=== PATIENT | female | born 1990 | race Caucasian/White ===

== ENCOUNTER → 2019-09-11 12:56 | Outpatient (BNVA) | payer OTHER, SELFPAY | PROVIDERS: Family Provider Nurse Practitioner Family; PCP Internal Medicine Rheumatology; Referring Provider Nurse Practitioner; Visit Provider Internal Medicine Rheumatology | DX: I73.00 Raynaud's syndrome without gangrene (principal); F41.9 Anxiety disorder, unspecified | CPT/HCPCS: 99203 ==

== ENCOUNTER 2020-04-19 12:41 | Outpatient (CLI) | payer SELFPAY ==
--- NOTE | 2020-04-19 12:57 | CT_ITS ---
WS: [id number] CT NECK WITH CONTRAST HISTORY: LOCALIZED SWELLING, MASS AND LUMP, TECHNIQUE: Contiguous 5 mm axial images are performed through the neck with intravenous contrast. Sag ittal and coronal reformats are also submitted. All CT scans at [facility] use at least o ne of these dose optimization techniques: automated exposure control; mA and/or kV adjustment per pat ient size (includes targeted exams where dose is matched to clinical indication); or iterative recons truction. CONTRAST: CONTRAST: Omnipaque 300; 95 mL IV. DLP: 2186.75 mGycm COMPARISON: None available. Nasopharynx, oropharynx, hypopharynx and larynx are unremarkable. No soft tissue masses or abnormal e nhancement. Torus tubarius and fossa of Rosenmuller and parapharyngeal fat are normal. There are small benign cervical chain lymph nodes. The largest at level IIa on the RIGHT is 6.2 mm. Submandibular and probably glands are symmetric bilaterally. No evidence for enlargement or acute inf lammatory process. There are no calcifications along the course of the ducts are dilated ducts. Promise l thyroid gland. No osseous abnormalities. Visualized portions of the skull base demonstrate no abnormalities. Orbits and globes are within norm al limits. No soft tissue masses. Visualized paranasal sinuses and mastoid air cells are normal. Lung apices are clear. CT/CT neck w con* [id number] IMPRESSION: 1. No neck mass or adenopathy. 2. No evidence for parotitis.
[2020-04-19] MEDS: iohexol 300 mg/mL 100 mL Btl IV (13:39)
== END 2020-04-19 12:42 | disposition home or self-care (01) ==
LOC: RADWPI 12:45
PROVIDERS: Family Provider Nurse Practitioner Family; PCP Internal Medicine Rheumatology; Visit Provider Specialist
DX: R22.1 Localized swelling, mass and lump, neck (principal)
CPT/HCPCS: 70491; Q9967

== ENCOUNTER → 2021-01-06 13:20 | Outpatient (BNVA) | payer OTHER, SELFPAY | PROVIDERS: Family Provider Nurse Practitioner Family; PCP Internal Medicine Rheumatology; Visit Provider Nurse Practitioner Family | DX: E66.9 Obesity, unspecified (principal); E55.9 Vitamin D deficiency, unspecified; R53.83 Other fatigue; Z79.899 Other long term (current) drug therapy; Z13.6 Encounter for screening for cardiovascular disorders | CPT/HCPCS: 80053; 80061; 81003; 82306; 83036; 84443; 85025 ==

== ENCOUNTER → 2021-03-30 15:50 | Outpatient (BNVA) | payer OTHER, SELFPAY | PROVIDERS: Family Provider Nurse Practitioner Family; PCP Internal Medicine Rheumatology; Visit Provider Nurse Practitioner Family | DX: R30.0 Dysuria (principal); H65.93 Unspecified nonsuppurative otitis media, bilateral; B37.3 Candidiasis of vulva and vagina; L98.9 Disorder of the skin and subcutaneous tissue, unspecified; H60.93 Unspecified otitis externa, bilateral; N39.0 Urinary tract infection, site not specified | CPT/HCPCS: 81003 ==

== ENCOUNTER → 2022-04-24 16:47 | Outpatient (BNVA) | payer OTHER, SELFPAY | PROVIDERS: Family Provider Nurse Practitioner Family; PCP Internal Medicine Rheumatology; Visit Provider Nurse Practitioner | DX: U07.1 COVID-19 (principal) | CPT/HCPCS: 87426 ==

== ENCOUNTER 2022-10-23 18:07 | Emergency (ER) | payer MEDICAID, SELFPAY ==
[2022-10-23 18:18] VITALS: BP 123/85; PULSE 100; RESP 16; TEMP 36.7; O2SAT 99; BMI 30.9
--- NOTE | 2022-10-23 18:23 | USR_ITS ---
PROCEDURE INFORMATION: Exam: US Duplex Left Lower Extremity Veins, Limited Exam date and time: 10/23/2022 7:10 PM Age: 32 years old Clinical indication: Leg, lower; Patient HX: Left posterior calf pain which radiates to the left hip x 2 months. No history of dvt per patient. ; Additional info: Leg pain TECHNIQUE: Imaging protocol: Real-time duplex ultrasound of the left extremity with 2-D fontenot scale, color Doppler flow and spectral waveform analysis including responses to compression and other maneuvers (when performed) with image documentation. Limited exam focused on the left lower extremity veins. COMPARISON: US soft tissue/extremity [id number] 02/03/2019 8:05 AM FINDINGS: Left deep veins: Unremarkable. The common femoral, femoral, proximal profunda femoral, popliteal, posterior tibial and peroneal veins are patent without thrombus. Normal compressibility, augmentation response and Doppler waveforms. Left superficial veins: Unremarkable. Saphenofemoral junction is patent without thrombus. Soft tissues: Unremarkable. US/CV venous duplex [facility] [id number] IMPRESSION: No sonographic evidence of deep vein thrombosis.
--- NOTE | 2022-10-23 19:01 | ED_ITS ---
HPI - Extremity Problem General: Chief complaint: Extremity Problem,Nontraumatic Stated complaint: Left leg swelling and pain Time Seen by Provider: 10/23/22 18:23 Source: patient Mode of arrival: ambulatory Limitations: no limitations History of Present Illness: 32-year-old female states she been having some swelling and tenderness to her left lower leg over the last 2 to 3 weeks. States she is concerned she may have a blood clot she denies any fever denies any warmth denies any injuries she denies any worsening improving factors. Denies any chest pain or shortness of breath. Associated symptoms: Deny chest pain, fever(s) or rash Review of Systems Const: Denies: fever(s), chills, body aches or change in appetite Eyes: Denies: blurry vision or eye discomfort ENMT: Denies: throat pain or dental pain Card: Denies: chest pain Resp: Denies: dyspnea GI: Denies: abdominal pain, nausea, vomiting or diarrhea : Denies: dysuria Musc: Reports: extremity pain and extremity swelling Skin/Breast: Denies: rash Neuro: Denies: headache(s) Psych: Denies: depression Lloyd/Lymph: Denies: easy bruising All/Imm: Denies: urticaria PFSH ED PFSH: Medical History Anxiety Bilateral otitis externa Encounter for health education Isolated primary Raynaud's phenomenon Raynauds disease Skin lesion Vaginal yeast infection Vitamin D deficiency Social History Smoking and tobacco status: former smoker Alcohol intake: current Alcohol intake frequency: holidays/special occasions only Physical Exam Const: COMMON NORMALS: no acute distress and patient oriented x3 HENMT: COMMON NORMALS: normocephalic and atraumatic HEAD & SCALP: normocephalic and atraumatic Eye: COMMON NORMALS: conjunctivae normal CONJUNCTIVA: Yes conjunctivae normal Neck/C-Spine: COMMON NORMALS: supple Chest: COMMONS NORMALS: normal inspection of the chest Resp: COMMON NORMALS: normal respiratory effort Cardio: COMMON NORMALS: regular rate RATE: regular rate GI: INSPECTION: Yes normal to inspection Extremity: NARRATIVE EXTREMITY EXAM: Swelling to left lower leg slight tenderness very minimal swelling no redness distal pulses intact Neuro: COMMON NORMALS: patient oriented x3 Psych: COMMON NORMALS: mental status grossly normal Skin: COMMON NORMALS: no rashes or lesions noted GENERAL SKIN EXAM: no rashes or lesions noted Course Vital Signs: Vital signs: Vital Signs Temperature 98.1 F 10/23/22 18:18 Pulse Rate 100 10/23/22 18:18 Respiratory Rate 16 10/23/22 18:18 Blood Pressure 123/85 10/23/22 18:18 Pulse Oximetry 99 10/23/22 18:18 Oxygen Delivery Me thod 10/23/22 18:18 MDM - Extremity (Nontraumatic) Medical Decision Making Patient presents with left leg pain and some very minimal swelling exam here is benign no signs of cellulitis ultrasound showed no sites of DVT she is well- appearing here she is stable for discharge she is to follow-up with PCP and return if worsening Discharge Plan Discharge Patient Disposition: Home Clinical Impression: Left leg pain Condition: Stable Prescriptions: No Action cholecalciferol (vitamin D3) 5,000 unit capsule 5,000 unit PO DAILY Discharge Orders: Discharge ED (Routine); Ordered 10/23/22 Ordered By: Violeta Juarez Discharge Diet: Advance as tolerated Discharge Activity: Resume usual activity Patient Instructions: Leg Pain (ED) Coding Level of Care Code ED Urgent Care Technician for Surya Villa
[2022-10-23 20:10] VITALS: BP 140/77; PULSE 84; RESP 18; O2SAT 98
--- NOTE | 2022-11-01 15:08 | DCPLANNER ---
Addendum entered by Belinda Springer 11/01/22 15:09: TCM called patient due to no primary care physician listed in patients chart - no answer at this time. Original Note: 10.27.22 - TCM called patient due to no primary care physician listed in patients chart - no answer at this time.
== END 2022-10-23 20:11 | disposition home or self-care (01) ==
PROVIDERS: Emergency Provider Emergency Medicine
DX: M79.605 Pain in left leg (principal); Z87.891 Personal history of nicotine dependence
CPT/HCPCS: 93971; 99284

== ENCOUNTER → 2023-01-29 10:33 | Outpatient (BNVA) | payer MEDICAID, SELFPAY | PROVIDERS: PCP Nurse Practitioner; Visit Provider Nurse Practitioner | DX: J02.9 Acute pharyngitis, unspecified (principal) | CPT/HCPCS: 87880 ==

== ENCOUNTER → 2023-02-20 11:01 | Outpatient (BNVA) | payer MEDICAID, SELFPAY | PROVIDERS: PCP Nurse Practitioner; Visit Provider Nurse Practitioner | DX: J02.9 Acute pharyngitis, unspecified (principal) | CPT/HCPCS: 87070; 87880 ==

== ENCOUNTER → 2023-04-23 14:44 | Outpatient (BNVA) | payer MEDICAID, SELFPAY | PROVIDERS: PCP Obstetrics & Gynecology; Visit Provider Nurse Practitioner | DX: R05.9 Cough, unspecified (principal); M54.50 Low back pain, unspecified | CPT/HCPCS: 81000; 87426 ==

== ENCOUNTER → 2023-05-02 10:48 | Outpatient (BNVA) | payer MEDICAID, SELFPAY | PROVIDERS: PCP Obstetrics & Gynecology; Visit Provider Nurse Practitioner Family | DX: R30.0 Dysuria (principal) | CPT/HCPCS: 81000 ==

== ENCOUNTER → 2023-06-05 08:23 | Outpatient (BNVA) | payer MEDICAID, SELFPAY | PROVIDERS: PCP Obstetrics & Gynecology; Visit Provider Nurse Practitioner Family | DX: E78.5 Hyperlipidemia, unspecified (principal); B96.89 Other specified bacterial agents as the cause of diseases classified elsewhere; N76.0 Acute vaginitis | CPT/HCPCS: 80053; 80061; 84443; 85025 ==

== ENCOUNTER → 2023-06-21 08:45 | Outpatient (BNVA) | payer MEDICAID, SELFPAY | PROVIDERS: PCP Obstetrics & Gynecology; Visit Provider Nurse Practitioner Family | DX: N89.8 Other specified noninflammatory disorders of vagina (principal); Z79.899 Other long term (current) drug therapy; E55.9 Vitamin D deficiency, unspecified; E87.5 Hyperkalemia; M25.561 Pain in right knee; M25.562 Pain in left knee | CPT/HCPCS: 73562; 80053; 81003; 82306; 83036; 83550; 83735 ==

== ENCOUNTER → 2023-06-26 12:23 | Outpatient (BNVA) | payer MEDICAID, SELFPAY | PROVIDERS: PCP Obstetrics & Gynecology; Visit Provider Nurse Practitioner Family | DX: Z12.4 Encounter for screening for malignant neoplasm of cervix (principal); Z71.89 Other specified counseling | CPT/HCPCS: 87070; 87106; 87205; 88175 ==

== ENCOUNTER → 2023-08-30 16:38 | Outpatient (BNVA) | payer MEDICAID, SELFPAY | PROVIDERS: PCP Nurse Practitioner Family; Visit Provider Nurse Practitioner Family | DX: N39.0 Urinary tract infection, site not specified (principal); R10.9 Unspecified abdominal pain | CPT/HCPCS: 81000 ==

== ENCOUNTER → 2023-12-04 11:05 | Outpatient (BNVA) | payer MEDICAID, SELFPAY | PROVIDERS: PCP Nurse Practitioner Family; Visit Provider Nurse Practitioner Family | DX: R10.2 Pelvic and perineal pain (principal) | CPT/HCPCS: 81003; 87070; 87086; 87205 ==

== ENCOUNTER → 2024-06-24 14:07 | Outpatient (BNVA) | payer SELFPAY | PROVIDERS: PCP Nurse Practitioner Family; Visit Provider Nurse Practitioner Family | DX: Z34.90 Encounter for supervision of normal pregnancy, unspecified, unspecified trimester (principal) | CPT/HCPCS: 84702 ==

== ENCOUNTER 2024-06-29 13:49 | Emergency (ER) | payer MEDICAID, SELFPAY ==
[2024-06-29 13:55] VITALS: BP 119/78; PULSE 80; RESP 17; TEMP 36.9; O2SAT 100; BMI 29.2
--- NOTE | 2024-06-29 14:10 | USR_ITS ---
PROCEDURE INFORMATION: Exam: US First Trimester, Transabdominal and US , Transvaginal Exam date and time: 06/29/2024 3:26 PM Age: 33 years old Clinical indication: Lmp or gestational age (in weeks): By US 5w2d; Antepartum complications; Bleeding; Additional info: Threatened miscarriage LABS AND CLINICAL REPORTS: Gestational age (Established): 6 w 1 d Estimated due date (Established): 02/21/2025 TECHNIQUE: Imaging protocol: Real-time transabdominal obstetrical ultrasound of the maternal pelvis and a first trimester , less than 14 weeks 0 days, with image documentation. Transvaginal imaging was used for better evaluation of the fetus, adnexa, and/or cervix. COMPARISON: US soft tissue/extremity [id number] 02/03/2019 8:05 AM FINDINGS: GESTATION: Gestation: Intrauterine gestational sac in the lower uterus.. Embryonic/ heart rate: No pole. Extra-embryonic membranes/Placenta: Unremarkable. No subchorionic bleed. Amniotic/Chorionic fluid: Amniotic and extra-amniotic fluid are normal for gestational age. BIOMETRY: Gestational age (AUA): 5 weeks and 2 days. Mean sac diameter: 0.61 cm. EGA (MSD) is 5 w 2 d MATERNAL: Uterus: Unremarkable. Cervix: Cervical length measures 3.8 cm. Right ovary/adnexa: Right ovary measures 2.4 x 2.6 x 4.6 cm. There is a 1.2 x 1.5 x 1.7 cm cyst in the right ovary. Left ovary/adnexa: The left ovary measures 2.7 x 2 x 1.2 cm. Intraperitoneal space: No intraperitoneal free fluid. US/US OB <=14 wk fetus w transvag IMPRESSION: Lower intrauterine gestational sac with estimated gestational age of 5 weeks and 2 days. No pole is visualized.
--- NOTE | 2024-06-29 14:18 | ED_ITS ---
HPI - Female Genitourinary 2 General: Chief complaint: Urogenital-Female Stated complaint: 7weeks pg, spotting Time Seen by Provider: 06/29/24 13:57 Source: patient Mode of arrival: ambulatory Limitations: no limitations History of Present Illness: 33-year-old female who is currently 6 to 7 weeks she states that today when she wiped she had a small amount of spotting. She denies any passing any clots denies any heavy bleeding states she has had some abdominal cramping as well denies any vomiting or diarrhea Associated symptoms: Deny abdominal pain, headache(s) or nausea Date of Last Menstrual Period: 05/20/24 Related Data Home Medications Medication Instructions Recorded Confirmed cephalexin 250 mg/5 mL oral 500 mg PO BID 06/24/24 06/24/24 suspension vitamin with calcium tab PO 06/24/24 06/24/24 no.72-iron 27 mg-folic acid 1 mg tablet (M-Alisson Plus) Previous Rx's Medication Instructions Recorded fluticasone propionate 50 1 spray intranasal DAILY PRN 06/24/24 mcg/actuation nasal allergy symptoms 30 days #16 grams spray,suspension Allergies Allergy/AdvReac Type Severity Reaction Status Date / Time No Known Allergies Allergy Verified 06/29/24 14:01 Review of Systems 2 Const: Denies: fever(s), chills, body aches or change in appetite ENMT: Denies: throat pain or dental pain Card: Denies: chest pain Resp: Denies: dyspnea GI: Denies: abdominal pain, nausea, vomiting or diarrhea : Denies: dysuria or vaginal bleeding Musc: Denies: neck pain or back pain Skin/Breast: Denies: rash Neuro: Denies: headache(s) PFSH ED 2 PFSH: Medical History Eustachian tube dysfunction Otitis media Fibrocystic breast changes Urinary tract infection Obesity Obesity Pelvic pain Environmental and seasonal allergies Vaginal discharge Breast self examination education, encounter for Cervical cancer screening Bilateral knee pain Medication management Serum potassium elevated Vaginal irritation Skin lesion Bilateral otitis externa Vaginal yeast infection Vitamin D deficiency Raynauds disease Encounter for health education Anxiety Isolated primary Raynaud's phenomenon Social History Smoking and tobacco/nicotine status: former use of tobacco/nicotine Alcohol intake: current Alcohol intake frequency: holidays/special occasions only Female Reproductive History: Date of last menstrual period: 05/20/24 Physical Exam 2 Const: COMMON NORMALS: no acute distress, patient oriented x3 and healthy appearing HENMT: COMMON NORMALS: normocephalic and atraumatic HEAD & SCALP: n ormocephalic and atraumatic Eye: COMMON NORMALS: Equal, round and reactive pupils present and EOMs intact bilaterally PUPIL: Yes Equal, round and reactive pupils present Neck/C-Spine: COMMON NORMALS: full ROM and supple Chest: COMMONS NORMALS: normal inspection of the chest Resp: COMMON NORMALS: normal respiratory effort Cardio: COMMON NORMALS: regular rate, regular rhythm and No murmurs present (Cardio) RATE: regular rate RHYTHM: regular rhythm GI: COMMON NORMALS: Normal to inspection, nondistended, normoactive bowel sounds present, Soft to palpation, non-tender and no masses PALPATION: Yes Soft to palpation Extremity: COMMON NORMALS: normal to inspection and full ROM Neuro: COMMON NORMALS: patient oriented x3, moves all extremities and no focal motor deficits Psych: COMMON NORMALS: mental status grossly normal, Normal thought process present and cooperative THOUGHT PROCESS: Normal thought process present Skin: COMMON NORMALS: no rashes or lesions noted and no wounds GENERAL SKIN EXAM: no rashes or lesions noted Course 2 Vital Signs: Vital signs: Vital Signs Temperature 98.4 F 06/29/24 13:55 Pulse Rate 80 06/29/24 13:55 Respiratory Rate 17 06/29/24 13:55 Blood Pressure 119/78 06/29/24 13:55 Pulse Oximetry 100 06/29/24 13:55 Oxygen Delivery Me thod Room Air 06/29/24 13:55 MDM - Female Medical Decision Making Patient presents here with vaginal bleeding patient diagnosed with threatened miscarriage her quantitative here was 2700 ultrasound showed no definite IUP I did instruct patient she could have a blighted ovum her bleeding is minimal at this time she has no signs of ectopic she is to follow-up with Dr. Guo in 2 to 4 days for repeat ultrasound and quantitative return to ER if worsening Medical Records I reviewed the patient's medical records. Lab Data I reviewed the patient's lab results. 06/29/24 14:17 06/29/24 14:17 Laboratory Results WBC 8.98 10^3/uL (3.29-11.43) 06/29/24 14:17 RBC 5.00 10^6/uL (3.85-5.65) 06/29/24 14:17 Hgb 15.00 g/dL (11.27-16.99) 06/29/24 14:17 Hct 46.4 % (36-47) 06/29/24 14:17 MCV 92.8 fl (85-98) 06/29/24 14:17 MCH 30.0 pg (27-33) 06/29/24 14:17 MCHC 32.3 g/dL (30-55) 06/29/24 14:17 RDW 12.6 % (12.1-15.1) 06/29/24 14:17 Plt Count 215 10^3/cmm (157-399) 06/29/24 14:17 MPV 11.4 fL (7.4-10.4) H 06/29/24 14:17 Neut % (Auto) 66.6 % 06/29/24 14:17 Lymph % (Auto) 25.8 % 06/29/24 14:17 [place] % (Auto) 5.9 % 06/29/24 14:17 Eos % (Auto) 0.8 % 06/29/24 14:17 Baso % (Auto) 0.7 % 06/29/24 14:17 Neut # (Auto) 5.98 10^3/uL (1.8-7.7) 06/29/24 14:17 Lymph # (Auto) 2.3 10^3/uL (0.8-4.8) 06/29/24 14:17 [place] # (Auto) 0.5 10^3/uL (0.2-0.9) 06/29/24 14:17 Eos # (Auto) 0.1 10^3/uL (0.0-0.8) 06/29/24 14:17 Baso # (Auto) 0.1 10^3/uL (0.0-0.1) 06/29/24 14:17 Nucleated RBC % (auto) 0 % 06/29/24 14:17 Nucleated RBCs # 0.0 /100WBC 06/29/24 14:17 Sodium 140 mmol/L (136-145) 06/29/24 14:17 Potassium 3.7 mmol/L (3.5-5.1) 06/29/24 14:17 Chloride 102 mmol/L (98-107) 06/29/24 14:17 Carbon Dioxide 26 mmol/L (22-29) 06/29/24 14:17 Anion Gap 15.7 (5-19) 06/29/24 14:17 BUN 7 mg/dL (6-20) 06/29/24 14:17 Creatinine 0.6 mg/dL (0.5-0.9) 06/29/24 14:17 GFR Calculation 115.1 mL/min (90-130) 06/29/24 14:17 Glucose 75 mg/dL (65-115) 06/29/24 14:17 Calculated Osmolality 287 mOsm/kg (285-295) 06/29/24 14:17 Calcium 8.8 mg/dL (8.5-10.5) 06/29/24 14:17 Total Bilirubin 0.4 mg/dL (0.15-1.2) 06/29/24 14:17 AST 17 U/L (0-32) 06/29/24 14:17 ALT 16 U/L (0-33) 06/29/24 14:17 Alkaline Phosphatase 73 U/L (35-105) 06/29/24 14:17 Total Protein 7.5 g/dL (6.6-8.7) 06/29/24 14:17 Albumin 4.5 g/dL (3.5-5.2) 06/29/24 14:17 Globulin 3.0 g/dL (1.3-4.6) 06/29/24 14:17 Lipase 31 U/L (13-60) 06/29/24 14:17 Ser , Semi-Qnt 2765.00 mIU/mL 06/29/24 14:17 Urine Color Yellow (Yellow) 06/29/24 14:50 Urine Appearance Clear (CLEAR) 06/29/24 14:50 Urine pH 5.0 (5-7) 06/29/24 14:50 Ur Specific [place] 1.023 (1.005-1.030) 06/29/24 14:50 Urine Protein Negative (Negative) 06/29/24 14:50 Urine Glucose (UA) Negative (Normal) 06/29/24 14:50 Urine Ketones Negative (Negative) 06/29/24 14:50 Urine Blood Negative (Negative) 06/29/24 14:50 Urine Nitrate Negative (Negative) 06/29/24 14:50 Urine Bilirubin Negative (Negative) 06/29/24 14:50 Urine Urobilinogen 1.0 mg/dL (Negative) 06/29/24 14:50 Ur Leukocyte Esterase Negative (Negative) 06/29/24 14:50 Urine RBC 0-2 /hpf (0-2) 06/29/24 14:50 Urine WBC 0-5 /hpf (0-5) 06/29/24 14:50 Ur Squamous Epith Cells 0-5 /hpf (0-5) 06/29/24 14:50 Amorphous Sediment Not Reportable 06/29/24 14:50 Urine Bacteria None seen /hpf (NONE) 06/29/24 14:50 Hyaline Casts 0-4 /lpf H 06/29/24 14:50 Blood Type O Positive 06/29/24 14:17 Rho(D) Type Rh positive 06/29/24 14:17 Antibody Screen Negative 06/29/24 14:17 All radiology interpretation(s) finalized by discharge Discharge Plan Discharge Patient Disposition: Home Clinical Impression: Threatened miscarriage Condition: Stable Prescriptions: No Action M-Alisson Plus 27 mg iron- 1 mg tablet PO cephalexin 250 mg/5 mL suspension for reconstitution 500 mg PO BID fluticasone propionate 50 mcg/actuation spray,suspension 1 spray intranasal DAILY PRN (Reason: allergy symptoms) 30 Days Qty: 16 0RF Rx Instructions: administer into each nostril Discharge Orders: Discharge ED (Routine); Ordered 06/29/24 Ordered By: Violeta Juarez Referrals: GEETA Bah, YENNI [Primary Care Provider] - Felix Guo MD [Physician] - 1-3 days Discharge Diet: Advance as tolerated Discharge Activity: Resume usual activity Patient Instructions: Threatened Miscarriage (ED) Coding Level of Care Code ED Slab Lifting Supervisor for Surya Villa
[2024-06-29 14:24] LABS: Basophils # 0.1 10^3/uL (0.0-0.1); Basophils % 0.7 %; Eosinophils # 0.1 10^3/uL (0.0-0.8); Eosinophils % 0.8 %; Hematocrit 46.4 % (36-47); Lymphocytes # 2.3 10^3/uL (0.8-4.8); Lymphocytes % 25.8 %; Mean Corpuscular HGB Conc 32.3 g/dL (30-55); Mean Corpuscular Volume 92.8 fl (85-98); Mean Platelet Volume 11.4 fL (7.4-10.4); Monocytes # 0.5 10^3/uL (0.2-0.9); Monocytes % 5.9 %; Neutrophils # 5.98 10^3/uL (1.8-7.7); Neutrophils % 66.6 %; Nucleated Red Blood Cells % 0 %; Platelet Count 215 10^3/cmm (157-399); Red Cell Distribution Width 12.6 % (12.1-15.1); White Blood Count 8.98 10^3/uL (3.29-11.43)
[2024-06-29 14:53] LABS: Alanine Aminotransferase 16 U/L (0-33); Albumin Level 4.5 g/dL (3.5-5.2); Alkaline Phosphatase 73 U/L (35-105); Anion Gap 15.7 (5-19); Aspartate Amino Transferase 17 U/L (0-32); Blood Urea Nitrogen 7 mg/dL (6-20); Calcium 8.8 mg/dL (8.5-10.5); Carbon Dioxide 26 mmol/L (22-29); Chloride 102 mmol/L (98-107); Creatinine Clr Calc Pharmacy 134.0342; Glomerular Filtration Rate 115.1 mL/min (90-130); Glucose 75 mg/dL (65-115); Lipase 31 U/L (13-60); Osmolality Calculated 287 mOsm/kg (285-295); Potassium 3.7 mmol/L (3.5-5.1); Sodium 140 mmol/L (136-145); Total Bilirubin 0.4 mg/dL (0.15-1.2); Total Protein 7.5 g/dL (6.6-8.7)
[2024-06-29 14:59] LABS: Bilirubin Urine Negative (Negative); Blood Urine Negative (Negative); Glucose Urine UA Negative (Normal); Ketones Urine Negative (Negative); Leukocyte Esterase Urine Negative (Negative); Nitrate Urine Negative (Negative); Protein Urine Negative (Negative); Specific Gravity, Urine 1.023 (1.005-1.030); Urine Appearance Clear (CLEAR); Urine Color Yellow (Yellow)
[2024-06-29 15:04] LABS: Add Urine Microscopic? YES; Bacteria Urine None Seen /hpf; Hyaline Casts Urine 0-4 /lpf; RBC Urine 0-2 /hpf (0-2); Squamous Epithelial Cell Urine 0-5 /hpf (0-5); WBC Urine 0-5 /hpf (0-5)
== END 2024-06-29 16:12 | disposition home or self-care (01) ==
PROVIDERS: Emergency Provider Emergency Medicine; PCP Nurse Practitioner Family
DX: O20.0 Threatened abortion (principal); Z3A.01 Less than 8 weeks gestation of pregnancy; Z87.891 Personal history of nicotine dependence
CPT/HCPCS: 36415; 76801; 76817; 80053; 81001; 83690; 84702; 85025; 86850; 86900; 99284

== ENCOUNTER → 2024-07-11 14:51 | Outpatient (BNVA) | payer MEDICAID, SELFPAY | PROVIDERS: PCP Nurse Practitioner Family; Visit Provider Nurse Practitioner Family | DX: M54.50 Low back pain, unspecified (principal); J02.9 Acute pharyngitis, unspecified | CPT/HCPCS: 81000; 87071; 87880 ==

== ENCOUNTER → 2024-09-12 08:39 | Outpatient (BNVA) | payer MEDICAID, SELFPAY | PROVIDERS: PCP Nurse Practitioner Family; Visit Provider Nurse Practitioner Family | DX: N39.0 Urinary tract infection, site not specified (principal); R31.9 Hematuria, unspecified | CPT/HCPCS: 81003; 87086 ==

== ENCOUNTER → 2024-09-24 13:33 | Outpatient (BNVA) | payer MEDICAID, SELFPAY | PROVIDERS: PCP Nurse Practitioner Family; Visit Provider Nurse Practitioner Family | DX: N76.0 Acute vaginitis (principal); B96.89 Other specified bacterial agents as the cause of diseases classified elsewhere | CPT/HCPCS: 87491; 87512; 87591; 87799 ==

== ENCOUNTER → 2024-10-07 10:50 | Outpatient (BNVA) | payer MEDICAID, SELFPAY | PROVIDERS: PCP Nurse Practitioner Family; Visit Provider Nurse Practitioner Family | DX: R68.89 Other general symptoms and signs (principal) | CPT/HCPCS: 87400 ==

== ENCOUNTER → 2025-01-15 14:36 | Outpatient (BNVA) | payer BC, MEDICAID, SELFPAY | PROVIDERS: PCP Nurse Practitioner Family; Visit Provider Nurse Practitioner Family | DX: E55.9 Vitamin D deficiency, unspecified (principal); E53.8 Deficiency of other specified B group vitamins; R53.83 Other fatigue; R14.0 Abdominal distension (gaseous) | CPT/HCPCS: 80053; 81003; 82306; 82607; 83690; 84439; 84443; 84481; 87338 ==

== ENCOUNTER → 2025-01-20 10:15 | Outpatient (BNVA) | payer BC, MEDICAID, SELFPAY | PROVIDERS: PCP Nurse Practitioner Family; Visit Provider Nurse Practitioner Family | DX: E55.9 Vitamin D deficiency, unspecified (principal); E53.8 Deficiency of other specified B group vitamins; R53.83 Other fatigue; R14.0 Abdominal distension (gaseous) | CPT/HCPCS: 87338 ==

== ENCOUNTER → 2025-01-22 15:22 | Outpatient (BNVA) | payer BC, MEDICAID, SELFPAY | PROVIDERS: PCP Nurse Practitioner Family; Visit Provider Nurse Practitioner Family | DX: F41.9 Anxiety disorder, unspecified (principal) | CPT/HCPCS: 81003 ==

== ENCOUNTER → 2025-04-14 10:31 | Outpatient (BNVA) | payer BC, MEDICAID, SELFPAY | PROVIDERS: PCP Nurse Practitioner Family; Visit Provider Nurse Practitioner Family | DX: R31.9 Hematuria, unspecified (principal); N39.0 Urinary tract infection, site not specified | CPT/HCPCS: 74018; 81003; 87086 ==

== ENCOUNTER → 2025-05-11 14:45 | Outpatient (BNVA) | payer BC, MEDICAID, SELFPAY | PROVIDERS: PCP Nurse Practitioner Family; Visit Provider Nurse Practitioner Family | DX: M54.9 Dorsalgia, unspecified (principal); G89.29 Other chronic pain; E55.9 Vitamin D deficiency, unspecified; K21.9 Gastro-esophageal reflux disease without esophagitis; E78.5 Hyperlipidemia, unspecified; Z79.899 Other long term (current) drug therapy | CPT/HCPCS: 80053; 80061; 81003; 82306; 82607; 82746; 83036; 83735; 84443; 85025 ==

== ENCOUNTER → 2025-08-25 10:18 | Outpatient (BNVA) | payer BC, MEDICAID, SELFPAY | PROVIDERS: PCP Nurse Practitioner Family; Visit Provider Nurse Practitioner Family | DX: I73.00 Raynaud's syndrome without gangrene (principal) | CPT/HCPCS: 85651; 86038; 86141 ==